=== PATIENT | female | born 1940 | race Caucasian/White ===

== ENCOUNTER 2017-10-07 05:38 | Outpatient (CLI) | payer MEDICARE ==
[~2017-10-07] VITALS: Ht 165.1 cm; Wt 83.9 kg
[2017-10-07] MEDS ORDERED: DILT180C54 PO (13:46)
[2017-10-07] MEDS ORDERED: HYDR25TA4 PO (13:46)
[2017-10-07] MEDS ORDERED: SIMV20TA3 PO (13:46)
[2017-10-07] MEDS ORDERED: MULT1TAB69 PO (13:46)
[2017-10-07] MEDS ORDERED: DIPH25CA79 PO (13:46)
[2017-10-07] MEDS ORDERED: ACYC400T PO (13:46)
[2017-10-07] MEDS ORDERED: ENAL20TA PO (13:46)
== END 2017-10-07 13:49 ==
LOC: PREOP 05:38
PROVIDERS: ATTEND Otolaryngology Otolaryngology/Facial Plastic Surgery
DX: Z01.818 Encounter for other preprocedural examination (principal); K11.23 Chronic sialoadenitis

== ENCOUNTER 2017-10-14 06:45 | Day surgery (SDC) | payer MEDICARE ==
[~2017-10-14] VITALS: Ht 165.1 cm; Wt 83.9 kg
[~2017-10-14 06:45] MED LIST: ACYC400T PO; DILT180C54 PO; DIPH25CA79 PO; ENAL20TA PO; HYDR25TA4 PO; MULT1TAB69 PO; SIMV20TA3 PO
--- OUTSIDE RECORDS SUMMARY | 2017-10-14 06:50 | XMS REPORT ---
Author Author CHRISTIANO ROACH [facility] eClinicalWorks Address Unknown Phone Unavailable Care Team Providers Care Mushroom Picker Name Role Phone CHRISTIANO ROACH CP Unavailable Allergies, Adverse Reactions, Alerts Substance Reaction Event Type Lipitor Info Not Available Drug Allergy Morphine Info Not Available Drug Allergy Problems Problem Type Condition Code Onset Dates Condition Status Assessment Cellulitis of leg, right L03.115 Active Problem Dysuria 788.1 Active Problem Acute upper respiratory infections of unspecified site 465.9 Active Problem Cervicalgia 723.1 Active Problem Essential hypertension, benign 401.1 Active Problem Diabetes mellitus without mention of complication, type II or unspecified type, not stated as uncontrolled 250.00 Active Problem Need for prophylactic vaccination and inoculation, Influenza V04.81 Active Problem Mixed hyperlipidemia 272.2 Active Medications Medication Code System Code Instructions Start Date End Date Status Dosage Furosemide [facility] [address]-12 20 MG Apr 09, 2014 take 1 tablet (20 mg) by oral route once daily Diltiazem HCl [facility] [address]-46 180 mg Apr 09, 2014 take 1 capsule (180 mg) by oral route once daily Simvastatin [facility] [address]-00 20 MG 1 tablet by Oral route 1 time per day Bactroban [facility] [address]-63 2 % Externally 2 times a day 1 application to affected area Enalapril Maleate [facility] [address]-02 10 MG Apr 09, 2014 take 1 tablet by Oral route 1 time per day Meloxicam [facility] [address]-67 15 MG Apr 09, 2014 take 1 tablet (15 mg) by oral route once daily Benadryl [facility] [address]-17 25 MG Orally every 6 hrs 1 tablet as needed Procedures Procedure Coding System Code Date Office Visit, Est Pt., Level 3 CPT-4 25038 May 06, 2016 [facility] VISIT ESTABLISHED PATIENT CPT-4 G0467 May 06, 2016 Vital Signs Date/Time: May 06, 2016 Cardiac Monitoring Heart Rate 76 bpm Weight 192.3 lbs Height 65 in BMI 32.00 Index Blood Pressure Diastolic 80 mmHg Blood Pressure Systolic 152 mmHg Results No Known Results Summary Purpose eClinicalWorks Submission
--- OUTSIDE RECORDS SUMMARY | 2017-10-14 06:50 | XMS REPORT ---
Author Author CHRISTIANO ROACH [facility] eClinicalWorks Address Unknown Phone Unavailable Care Team Providers Care Furniture Lumber Production Worker Name Role Phone CHRISTIANO ROACH CP Unavailable Allergies, Adverse Reactions, Alerts Substance Reaction Event Type Lipitor Info Not Available Drug Allergy Morphine Info Not Available Drug Allergy Problems Problem Type Condition Code Onset Dates Condition Status Assessment Contusion of right lower leg, initial encounter S80.11XA Active Problem Dysuria 788.1 Active Problem Acute [...] Instructions Start Date End Date Status Dosage Diltiazem HCl [facility] [address]-52 180 mg Apr 09, 2014 take 1 capsule (180 mg) by oral route once daily Bactroban [facility] [address]-34 2 % Externally 2 times a day 1 application to affected area Furosemide [facility] [address]-06 20 MG Apr 09, 2014 take 1 tablet (20 mg) by oral route once daily Meloxicam [facility] [address]-71 15 MG Apr 09, 2014 take 1 tablet (15 mg) by oral route once daily Enalapril Maleate [facility] [address]-09 10 MG Apr 09, 2014 take 1 tablet by Oral route 1 time per day Simvastatin [facility] [address]-39 20 MG 1 tablet by Oral route 1 time per day Benadryl [facility] [address]-07 25 MG Orally every 6 hrs 1 tablet as needed Procedures Procedure Coding System Code Date [facility] VISIT ESTABLISHED PATIENT CPT-4 G0467 Apr 29, 2016 Office Visit, Est Pt., Level 3 CPT-4 00621 Apr 29, 2016 X-RAY EXAM OF LOWER LEG CPT-4 38536 Apr 29, 2016 Vital Signs Date/Time: Apr 29, 2016 Cardiac Monitoring Heart Rate 78 bpm Weight 187.6 lbs Height 65 in BMI 31.21 Index Blood Pressure Diastolic 82 mmHg Blood Pressure Systolic 134 mmHg Results No Known Results Summary Purpose eClinicalWorks Submission
--- OUTSIDE RECORDS SUMMARY | 2017-10-14 06:50 | XMS REPORT ---
Author Author CHRISTIANO ROACH Organization eClinicalWorks Address Unknown Phone Unavailable Care Team Providers Care Technical Education Teacher Name Role Phone CHRISTIANO ROACH CP Unavailable Allergies No Known Allergies Problems Problem Type Condition Code Onset Dates Condition Status Problem Dysuria 788.1 Active Problem Acute upper [...] Instructions Start Date End Date Status Dosage Enalapril Maleate [facility] [address]-00 10 MG Apr 09, 2014 take 1 tablet by Oral route 1 time per day Furosemide [facility] [address]-97 20 MG Apr 09, 2014 take 1 tablet (20 mg) by oral route once daily Diltiazem HCl [facility] [address]-16 180 mg Apr 09, 2014 take 1 capsule (180 mg) by oral route once daily Simvastatin [facility] [address]-17 20 MG 1 tablet by Oral route 1 time per day Meloxicam [facility] [address]-58 15 MG Apr 09, 2014 take 1 tablet (15 mg) by oral route once daily Results No Known Results Summary Purpose eClinicalWorks Submission
--- OUTSIDE RECORDS SUMMARY | 2017-10-14 06:50 | XMS REPORT ---
Author [facility] Address [address] [place] [address] Care Team Providers Care Plow Mechanic Name Role Phone CHRISTIANO ROACH Unavailable PROBLEMS Type Condition ICD9-CM Code [id number] Code Onset Dates Condition Status SNOMED Code Problem Dysuria 788.1 Active 85472676 Problem Acute upper respiratory infections of unspecified site 465.9 Active 62352685 Problem Cervicalgia 723.1 Active 75517653 Problem Need for prophylactic vaccination and inoculation, Influenza V04.81 Active 351994843 Problem Essential (primary) hypertension I10 Active 31302916 Problem Type 2 diabetes mellitus without complications E11.9 Active 177413663 Problem Mixed hyperlipidemia 272.2 Active 371310138 Problem Essential hypertension, benign 401.1 Active 1697193 Problem Mixed hyperlipidemia E78.2 Active 957676561 Problem Diabetes mellitus without mention of complication, type II or unspecified type, not stated as uncontrolled 250.00 Active 873177901 ALLERGIES Unknown Allergies SOCIAL HISTORY No smoking Hx information available PLAN OF CARE VITAL SIGNS MEDICATIONS Medication Instructions Dosage Frequency Start Date End Date Duration Status Hydrocortisone 5 mg Orally every 4 hours as needed for pain/cough 1 tablet Jun, Active RESULTS No Results PROCEDURES No Known procedures IMMUNIZATIONS No Known Immunizations
--- OUTSIDE RECORDS SUMMARY | 2017-10-14 06:50 | XMS REPORT ---
Author CHRISTIANO Green Organization eClinicalWorks Address Unknown Phone Unavailable Care Team Providers Care Fire Controlman Name Role Phone CHRISTIANO ROACH CP Unavailable Allergies, Adverse Reactions, Alerts Substance Reaction Event Type Lipitor Info Not Available Drug Allergy Morphine Info Not Available Drug Allergy Problems Problem Type Condition Code Onset Dates Condition Status Assessment Mixed hyperlipidemia E78.2 Active Assessment Essential (primary) hypertension I10 Active Assessment Type 2 diabetes mellitus without complications E11.9 Active Problem Dysuria 788.1 Active Problem Acute [...] Date End Date Status Dosage Enalapril Maleate [facility] [address]-57 10 MG Apr 09, 2014 take 1 tablet by Oral route 1 time per day Simvastatin [facility] [address]-41 20 MG 1 tablet by Oral route 1 time per day Meloxicam [facility] [address]-24 15 MG Apr 09, 2014 take 1 tablet (15 mg) by oral route once daily Diltiazem HCl [facility] [address]-58 180 mg Apr 09, 2014 take 1 capsule (180 mg) by oral route once daily Furosemide [facility] [address]-93 20 MG Apr 09, 2014 take 1 tablet (20 mg) by oral route once daily Procedures Procedure Coding System Code Date Office Visit, Est Pt., Level 3 CPT-4 01615 Apr 30, 2015 [facility] VISIT ESTABLISHED PATIENT CPT-4 G0467 Apr 30, 2015 Vital Signs Date/Time: Apr 30, 2015 Temperature 98.3 F Weight 182 lbs Height 65 in BMI 30.28 Index Blood Pressure Diastolic 80 mmHg Blood Pressure Systolic 142 mmHg Cardiac Monitoring Heart Rate 76 bpm Results No Known Results Summary Purpose eClinicalWorks Submission
--- OUTSIDE RECORDS SUMMARY | 2017-10-14 06:50 | XMS REPORT ---
Author Author ALINA DILL Organization eClinicalWorks Address Unknown Phone Unavailable Care Team Providers Care Tool Storage Attendant Name Role Phone ALINA DILL CP Unavailable Allergies No Known Allergies Problems Problem Type Condition Code Onset Dates Condition Status Assessment Mixed hyperlipidemia E78.2 Active Assessment Encounter for immunization Z23 Active Assessment Routine child health exam V20.2 Active Assessment Type 2 diabetes mellitus without complications E11.9 Active Assessment Essential (primary) hypertension I10 Active Problem Dysuria 788.1 Active Problem Acute upper respiratory infections of unspecified site 465.9 Active Problem Cervicalgia 723.1 Active Problem Essential hypertension, benign 401.1 Active Problem Diabetes mellitus without mention of complication, type II or unspecified type, not stated as uncontrolled 250.00 Active Problem Need for prophylactic vaccination and inoculation, Influenza V04.81 Active Problem Mixed hyperlipidemia 272.2 Active Medications No Known Medications Procedures Procedure Coding System Code Date [facility] C[facility]-4 NOBLL Apr 16, 2015 GLYCATED HEMOGLOBIN TEST CPT-4 07460 Apr 16, 2015 ADMN FLU VAC NO FEE SCHED SAME DAY CPT-4 G0008 Apr 16, 2015 FLUARIX QUAD (3 & UP)-GSK-2014 CPT-4 62371 Apr 16, 2015 VENIPUNCT, ROUTINE* CPT-4 12186 Apr 16, 2015 Results Name Result Date Reference Range Unit Abnormality Flag ROUTINE VENIPUNCTURE A1C Immunizations Vaccine Administration Date FLUARIX QUAD (3 & UP)-GSK-2014Apr 16, 2015 Summary Purpose eClinicalWorks Submission
--- OUTSIDE RECORDS SUMMARY | 2017-10-14 06:50 | XMS REPORT ---
Author Author [facility] Address [address] [place] [address] Care Team Providers Care Pencils Washer Name Role Phone CHRISTIANO ROACH Unavailable PROBLEMS Type Condition ICD9-CM Code [id number] Code Onset Dates Condition Status SNOMED Code Problem Essential hypertension, benign 401.1 Active 7167847 Problem Need for prophylactic vaccination and inoculation, Influenza V04.81 Active 614199367 Problem Mixed hyperlipidemia 272.2 Active 352696548 Problem Diabetes mellitus without mention of complication, type II or unspecified type, not stated as uncontrolled 250.00 Active 429392463 Problem Type 2 diabetes mellitus without complications E11.9 Active 902751364 Problem Mixed hyperlipidemia E78.2 Active 923326252 Problem Dysuria 788.1 Active 22858689 Problem Acute upper respiratory infections of unspecified site 465.9 Active 37208771 Problem Essential (primary) hypertension I10 Active 79216245 Problem Cervicalgia 723.1 Active 87989129 ALLERGIES Unknown Allergies SOCIAL HISTORY No smoking Hx information available PLAN OF CARE Activity Details Follow Up prn Reason: VITAL SIGNS MEDICATIONS Unknown Medications RESULTS Name Result Date Reference Range A1C 2016-06-25 Hemoglobin A1c 6.3 4.8-5.6 CBC 2016-06-25 WBC 5.8 3.4-10.8 RBC 4.88 3.77-5.28 Hemoglobin 14.8 11.1-15.9 Hematocrit 43.9 34.0-46.6 MCV 90 79-97 MCH 30.3 26.6-33.0 MCHC 33.7 31.5-35.7 RDW 12.8 12.3-15.4 Platelets 244 150-379 Neutrophils 63 Lymphs 26 Monocytes 8 Eos 3 Basos 0 Immature Cells Neutrophils (Absolute) 3.6 1.4-7.0 Lymphs (Absolute) 1.5 0.7-3.1 Monocytes(Absolute) 0.5 0.1-0.9 Eos (Absolute) 0.2 0.0-0.4 Baso (Absolute) 0.0 0.0-0.2 Immature Granulocytes 0 Immature Grans (Abs) 0.0 0.0-0.1 NR Hematology Comments: LIPID PANEL 2016-06-25 Cholesterol, Total 194 100-199 Triglycerides 143 0-149 HDL Cholesterol 51 >39 VLDL Cholesterol Konrad 29 5-40 LDL Cholesterol Calc 114 0-99 Comment: CMP 2016-06-25 Glucose, Serum 145 65-99 BUN 20 8-27 Creatinine, Serum 0.68 0.57-1.00 eGFR If NonAfricn Am 84 >59 eGFR If Africn Am 97 >59 BUN/Creatinine Ratio 29 11-26 Sodium, Serum 143 134-144 Potassium, Serum 4.9 3.5-5.2 Chloride, Serum 101 96-106 Carbon Dioxide, Total 27 18-29 Calcium, Serum 9.5 8.7-10.3 Protein, Total, Serum 6.3 6.0-8.5 Albumin, Serum 4.3 3.5-4.8 Globulin, Total 2.0 1.5-4.5 A/G Ratio 2.2 1.1-2.5 Bilirubin, Total 0.7 0.0-1.2 Alkaline Phosphatase, S 80 39-117 AST (SGOT) 15 0-40 ALT (SGPT) 15 0-32 PROCEDURES Procedure Date Ordered Related Diagnosis Body [facility], 2016 GLYCATED HEMOGLOBIN TEST Jun 25, 2016 VENIPUNCT, ROUTINE* Jun 25, 2016 IMMUNIZATIONS No Known Immunizations
--- OUTSIDE RECORDS SUMMARY | 2017-10-14 06:50 | XMS REPORT ---
Author Author [facility] Address [address] [place] [address] Care Team Providers Care Senior Web Analyst Name Role Phone CHRISTIANO ROACH Unavailable PROBLEMS Type Condition ICD9-CM Code [id number] Code Onset Dates Condition Status SNOMED Code Problem Dysuria 788.1 Active 80798074 Problem Acute upper respiratory infections of unspecified site 465.9 Active 37760130 Problem Cervicalgia 723.1 Active 60964133 Problem Need for prophylactic vaccination and inoculation, Influenza V04.81 Active 306378667 Problem Essential (primary) hypertension I10 Active 56151814 Problem Type 2 diabetes mellitus without complications E11.9 Active 614200069 Problem Mixed hyperlipidemia 272.2 Active 528765729 Problem Essential hypertension, benign 401.1 Active 5442078 Problem Mixed hyperlipidemia E78.2 Active 736850586 Problem Diabetes mellitus without mention of complication, type II or unspecified type, not stated as uncontrolled 250.00 Active 019781482 ALLERGIES Substance Reaction Event Type Date Status Lipitor Unknown Drug Allergy Jun, Active Morphine Unknown Drug Allergy Jun, Active SOCIAL HISTORY No smoking Hx information available PLAN OF CARE Activity Details Follow Up 1 Year Reason: VITAL SIGNS Height 65 in 2016-06-30 Weight 190.4 lbs 2016-06-30 Temperature 98.2 degrees Fahrenheit 2016-06-30 Heart Rate 86 bpm 2016-06-30 Respiratory Rate 18 2016-06-30 BMI 31.68 kg/m2 2016-06-30 Blood pressure systolic 170 mmHg 2016-06-30 Blood pressure diastolic 88R-168 mmHg 2016-06-30 MEDICATIONS Medication Instructions Dosage Frequency Start Date End Date Duration Status Furosemide 20 MG take 1 tablet (20 mg) by oral route once daily Mar Active Meloxicam 15 MG take 1 tablet (15 mg) by oral route once daily Mar, Active Bactroban 2 % Externally 2 times a day 1 application to affected area 12h Active Enalapril Maleate 10 MG take 1 tablet by Oral route 1 time per day Mar, Active Simvastatin 20 MG 1 tablet by Oral route 1 time per day Active Diltiazem HCl 180 mg take 1 capsule (180 mg) by oral route once daily Mar, Active Benadryl 25 MG Orally every 6 hrs 1 tablet as needed 6h Active RESULTS Name Result Date Reference Range MICROALBUMIN/CREATININE RATIO, URINE 2016-06-30 Creatinine, Urine 37.3 Not Estab. Microalbumin, Urine 16.6 Not Estab. Microalb/Creat Ratio 44.5 0.0-30.0 MICROALBUMIN, URINE (IN HOUSE) 2016-06-30 MICROALBUMIN abnormal Lot # [id number] Exp date 06/2017 Clarity clear Color yellow ALB 30mg/L CRE 50mg/dL A:C (IN HOUSE) 30-300mg/g Control Control Lot # Exp PROCEDURES Procedure Date Ordered Related Diagnosis Body Site MICROALBUMIN, SEMIQUANT Jun 30, 2016 [facility] Jun [facility], 2016 Office Visit, Est Pt., Level 3 Jun 30, 2016 [facility] VISIT ESTABLISHED PATIENT Jun 30, 2016 IMMUNIZATIONS No Known Immunizations
--- OUTSIDE RECORDS SUMMARY | 2017-10-14 06:51 | XMS REPORT | Continuity of Care Document ---
Author Author Formerly [facility], 1928–1983 [facility] Address Unknown Phone Unavailable Allergies Active Description Code Type Severity Reaction Onset Reported/Identified Relationship to Patient Clinical Status Yes morphine [id number] Drug Allergy Unknown NAUSEA 10/07/2017 Medications There is no data. Problems Date Dx Coded Attending Type Code Diagnosis Diagnosed By 04/24/2013 CHRISTIANO ROACH MD 250.00 DIABETES MELLITUS WITHOUT MENTION OF COMPLICATION TYPE II OR UNSPECIFIED TYPE NOT STATED UNCONTROLLED 04/24/2013 CHRISTIANO ROACH MD 272.2 MIXED HYPERLIPIDEMIA 04/24/2013 CHRISTIANO ROACH MD 401.1 BENIGN ESSENTIAL HYPERTENSION 04/24/2013 CHRISTIANO ROACH MD 250.00 DIABETES MELLITUS WITHOUT MENTION OF COMPLICATION TYPE II OR UNSPECIFIED TYPE NOT STATED UNCONTROLLED 04/24/2013 CHRISTIANO ROACH MD 272.2 MIXED HYPERLIPIDEMIA 04/24/2013 CHRISTIANO ROACH MD 401.1 BENIGN ESSENTIAL HYPERTENSION 04/24/2013 CHRISTIANO ROACH MD 250.00 DIABETES MELLITUS WITHOUT MENTION OF COMPLICATION TYPE II OR UNSPECIFIED TYPE NOT STATED UNCONTROLLED 04/24/2013 CHRISTIANO ROACH MD 272.2 MIXED HYPERLIPIDEMIA 04/24/2013 CHRISTIANO ROACH MD 401.1 BENIGN ESSENTIAL HYPERTENSION 04/24/2013 CHRISTIANO ROACH MD 250.00 DIABETES MELLITUS WITHOUT MENTION OF COMPLICATION TYPE II OR UNSPECIFIED TYPE NOT STATED UNCONTROLLED 04/24/2013 CHRISTIANO ROACH MD 272.2 MIXED HYPERLIPIDEMIA 04/24/2013 CHRISTIANO ROACH MD 401.1 BENIGN ESSENTIAL HYPERTENSION 04/24/2013 CHRISTIANO ROACH MD 250.00 DIABETES MELLITUS WITHOUT MENTION OF COMPLICATION TYPE II OR UNSPECIFIED TYPE NOT STATED UNCONTROLLED 04/24/2013 CHRISTIANO ROACH MD 272.2 MIXED HYPERLIPIDEMIA 04/24/2013 CHRISTIANO ROACH MD 401.1 BENIGN ESSENTIAL HYPERTENSION 04/24/2013 CHRISTIANO ROACH MD 250.00 DIABETES MELLITUS WITHOUT MENTION OF COMPLICATION TYPE II OR UNSPECIFIED TYPE NOT STATED UNCONTROLLED 04/24/2013 CHRISTIANO ROACH MD 272.2 MIXED HYPERLIPIDEMIA 04/24/2013 CHRISTIANO ROACH MD 401.1 BENIGN ESSENTIAL HYPERTENSION 04/24/2013 CHRISTIANO ROACH MD 250.00 DIABETES MELLITUS WITHOUT MENTION OF COMPLICATION TYPE II OR UNSPECIFIED TYPE NOT STATED UNCONTROLLED 04/24/2013 CHRISTIANO ROACH MD 272.2 MIXED HYPERLIPIDEMIA 04/24/2013 CHRISTIANO ROACH MD 401.1 BENIGN ESSENTIAL HYPERTENSION 04/24/2013 CHRISTIANO ROACH MD 250.00 DIABETES MELLITUS WITHOUT MENTION OF COMPLICATION TYPE II OR UNSPECIFIED TYPE NOT STATED UNCONTROLLED 04/24/2013 CHRISTIANO ROACH MD 272.2 MIXED HYPERLIPIDEMIA 04/24/2013 CHRISTIANO ROACH MD 401.1 BENIGN ESSENTIAL HYPERTENSION 04/24/2013 CHRISTIANO ROACH MD 250.00 DIABETES MELLITUS WITHOUT MENTION OF COMPLICATION TYPE II OR UNSPECIFIED TYPE NOT STATED UNCONTROLLED 04/24/2013 CHRISTIANO ROACH MD 272.2 MIXED HYPERLIPIDEMIA 04/24/2013 CHRISTIANO ROACH MD 401.1 BENIGN ESSENTIAL HYPERTENSION 04/24/2013 CHRISTIANO ROACH MD 250.00 DIABETES MELLITUS WITHOUT MENTION OF COMPLICATION TYPE II OR UNSPECIFIED TYPE NOT STATED UNCONTROLLED 04/24/2013 CHRISTIANO ROACH MD 272.2 MIXED HYPERLIPIDEMIA 04/24/2013 CHRISTIANO ROACH MD 401.1 BENIGN ESSENTIAL HYPERTENSION 04/24/2013 CHRISTIANO ROACH MD 250.00 DIABETES MELLITUS WITHOUT MENTION OF COMPLICATION TYPE II OR UNSPECIFIED TYPE NOT STATED UNCONTROLLED 04/24/2013 CHRISTIANO ROACH MD 272.2 MIXED HYPERLIPIDEMIA 04/24/2013 CHRISTIANO ROACH MD 401.1 BENIGN ESSENTIAL HYPERTENSION 08/09/2013 CHRISTIANO ROACH MD 465.9 UPPER RESPIRATORY INFECTION 08/09/2013 CHRISTIANO ROACH MD 465.9 UPPER RESPIRATORY INFECTION 08/09/2013 CHRISTIANO ROACH MD 465.9 UPPER RESPIRATORY INFECTION 08/09/2013 CHRISTIANO ROACH MD 465.9 UPPER RESPIRATORY INFECTION 08/09/2013 CHRISTIANO ROACH MD 465.9 UPPER RESPIRATORY INFECTION 08/09/2013 CHRISTIANO ROACH MD 465.9 UPPER RESPIRATORY INFECTION 08/09/2013 CHRISTIANO ROACH MD 465.9 UPPER RESPIRATORY INFECTION 08/09/2013 CHRISTIANO ROACH MD 465.9 UPPER RESPIRATORY INFECTION 08/09/2013 CHRISTIANO ROACH MD 465.9 UPPER RESPIRATORY INFECTION 09/28/2013 CHRISTIANO ROACH MD 723.1 PAIN NECK 09/28/2013 CHRISTIANO ROACH MD 723.1 PAIN NECK 09/28/2013 CHRISTIANO ROACH MD 723.1 PAIN NECK 09/28/2013 CHRISTIANO ROACH MD 723.1 PAIN NECK 09/28/2013 CHRISTIANO ROACH MD 723.1 PAIN NECK 09/28/2013 CHRISTIANO ROACH MD 723.1 PAIN NECK 09/28/2013 CHRISTIANO ROACH MD 723.1 PAIN NECK 09/28/2013 CHRISTIANO ROACH MD 723.1 PAIN NECK 11/03/2013 CHRISTIANO ROACH MD 788.1 DYSURIA 11/03/2013 CHRISTIANO ROACH MD 788.1 DYSURIA 11/03/2013 CHRISTIANO ROACH MD 788.1 DYSURIA 11/03/2013 CHRISTIANO ROACH MD 788.1 DYSURIA 11/03/2013 CHRISTIANO ROACH MD 788.1 DYSURIA 11/03/2013 CHRISTIANO ROACH MD 788.1 DYSURIA 04/09/2014 CHRISTIANO ROACH MD V04.81 FLU SHOT 04/09/2014 CHRISTIANO ROACH MD V04.81 FLU SHOT Procedures Code Description [place] [address] CBC 04/25/2013 3705274 GFR CALC (RESULT ONLY) 04/25/2013 64774 CMP 04/25/2013 53065 LIPID PANEL 04/25/2013 13410 A1C (RML) 04/25/2013 55324 ROUTINE VENIPUNCTURE 05/04/2013 44648 ROUTINE VENIPUNCTURE 11/01/2013 96477 CMP 11/01/2013 77108 LIPID PANEL 11/01/2013 9437434 GFR CALC (RESULT ONLY) 11/01/2013 98925 CBC 11/01/2013 45700 A1C (RML) 11/01/2013 15380 UA LONG DIP 11/03/2013 11552 CULTURE URINE 11/05/2013 38397 UA LONG DIP 12/05/2013 64476 UA LONG DIP 01/08/2014 42682 MICRO ALBUMIN-IN HOUSE 04/02/2014 89664 ROUTINE VENIPUNCTURE 04/02/2014 3205522 GFR CALC (RESULT ONLY) 04/02/2014 14599 LIPID PANEL 04/02/2014 20554 CMP 04/02/2014 99434 CBC 04/02/2014 27909 A1C (RML) 04/03/2014 G0008 FLU ADMINISTRATION ( MEDICARE ONLY) 04/09/2014 43113 ROUTINE VENIPUNCTURE 10/05/2014 41597 CBC 10/05/2014 02674 A1C (RML) 10/05/2014 44013 CMP 10/05/2014 47148 LIPID PANEL 10/05/20148421983 GFR CALC (RESULT ONLY) 10/05/2014 Results Test Result Range TSH w/ FREE T4 - 06/29/17 15:38 TSH 1.55 mIU/L 0.40-4.50 T4, FREE 1.3 ng/dL 0.8-1.8 CBC - 06/29/17 15:38 WHITE BLOOD CELL COUNT 7.1 Thousand/uL 3.8-10.8 RED BLOOD CELL COUNT 5.19 Million/uL 3.80-5.10 HEMOGLOBIN 15.3 g/dL 11.7-15.5 HEMATOCRIT 46.2 % 35.0-45.0 MCV 89.0 fL 80.0-100.0 MCH 29.5 pg 27.0-33.0 MCHC 33.1 g/dL 32.0-36.0 RDW 12.0 % 11.0-15.0 PLATELET COUNT 263 Thousand/uL 140-400 MPV 10.5 fL 7.5-12.5 ABSOLUTE NEUTROPHILS 4324 cells/uL 4364-4700 ABSOLUTE LYMPHOCYTES 1974 cells/uL 850-3900 ABSOLUTE MONOCYTES 589 cells/uL 200-950 ABSOLUTE EOSINOPHILS 163 cells/uL 15-500 ABSOLUTE BASOPHILS 50 cells/uL 0-200 NEUTROPHILS 60.9 % NRG LYMPHOCYTES 27.8 % NRG MONOCYTES 8.3 % NRG EOSINOPHILS 2.3 % NRG BASOPHILS 0.7 % NRG ESR/SED RATE - 06/29/17 15:38 SED RATE BY MODIFIED WESTERGREN 14 mm/h < OR=30 BMP - 07/16/17 09:07 GLUCOSE 120 mg/dL 65-99 UREA NITROGEN (BUN) 21 mg/dL 7-25 CREATININE 0.69 mg/dL 0.60-0.93 eGFR NON-AFR. MALAYSIAN 83 mL/min/1.73m2 > OR=60 eGFR 96 mL/min/1.73m2 > OR=60 BUN/CREATININE RATIO NOT APPLICABLE (calc) 6-22 SODIUM 142 mmol/L 135-146 POTASSIUM 4.2 mmol/L 3.5-5.3 CHLORIDE 106 mmol/L 98-110 CARBON DIOXIDE 29 mmol/L 20-31 CALCIUM 9.6 mg/dL 8.6-10.4 CBC - 08/09/17 16:45 WHITE BLOOD CELL COUNT 7.4 Thousand/uL 3.8-10.8 RED BLOOD CELL COUNT 5.25 Million/uL 3.80-5.10 HEMOGLOBIN 15.7 g/dL 11.7-15.5 HEMATOCRIT 46.6 % 35.0-45.0 MCV 88.8 fL 80.0-100.0 MCH 29.9 pg 27.0-33.0 MCHC 33.7 g/dL 32.0-36.0 RDW 12.3 % 11.0-15.0 PLATELET COUNT 263 Thousand/uL 140-400 MPV 10.7 fL 7.5-12.5 ABSOLUTE NEUTROPHILS 4566 cells/uL 2292-7246 ABSOLUTE LYMPHOCYTES 2057 cells/uL 850-3900 ABSOLUTE MONOCYTES 607 cells/uL 200-950 ABSOLUTE EOSINOPHILS 118 cells/uL 15-500 ABSOLUTE BASOPHILS 52 cells/uL 0-200 NEUTROPHILS 61.7 % NRG LYMPHOCYTES 27.8 % NRG MONOCYTES 8.2 % NRG EOSINOPHILS 1.6 % NRG BASOPHILS 0.7 % NRG Encounters ACCT No. Visit Date/Time Discharge Status Pt. Type Provider Facility Loc./Unit Complaint [id number] 10/10/2014 10:42:00 10/10/2014 23:59:59 AMIR[facility] Outpatient CHRISTIANO ROACH MD [id number] 04/09/2014 11:04:00 04/09/2014 23:59:59 [facility] Outpatient CHRISTIANO ROACH MD [id number] 04/02/2014 08:01:00 04/02/2014 23:59:59 [facility] Outpatient CHRISTIANO ROACH MD [id number] 01/08/2014 09:24:00 01/08/2014 23:59:59 AMIRAH Outpatient CHRISTIANO ROACH MD [id number] 12/05/2013 08:19:00 12/05/2013 23:59:59 CLS Outpatient CHRISTIANO ROACH MD [id number] 11/03/2013 08:53:00 11/03/2013 23:59:59 CLS Outpatient CHRISTIANO ROACH MD [id number] 11/01/2013 08:06:00 11/01/2013 23:59:59 CLS Outpatient CHRISTIANO ROACH MD [id number] 09/28/2013 14:20:00 09/28/2013 23:59:59 CLS Outpatient CHRISTIANO ROACH MD [id number] 08/09/2013 11:24:00 08/09/2013 23:59:59 CLS Outpatient CHRISTIANO ROACH MD [id number] 05/03/2013 13:42:00 05/03/2013 23:59:59 CLS Outpatient CHRISTIANO ROACH MD [id number] 04/24/2013 07:57:00 04/24/2013 23:59:59 CLS Outpatient CHRISTIANO ROACH MD [id number] 10/07/2017 05:38:00 10/07/2017 13:49:00 DIS Outpatient SANJUANA MARRERO MD [facility] PREOP CHRONIC LEFT SUBMANDIBULAR SIALADENITIS [id number] 10/14/2017 09:00:00 PEN Preadmit SANJUANA MARRERO MD [facility] SDC CHRONIC LEFT SUBMANDIBULAR SIALADENITIS [id number] 08/23/2017 16:00:00 08/23/2017 23:59:59 CLS Outpatient JOSIE ANN IOLA [id number] 08/09/2017 16:00:00 Document Registration [id number] 07/16/2017 09:00:00 Document Registration [id number] 06/29/2017 14:40:00 Document Registration
[2017-10-14 07:05] VITALS: BP 152/82
[2017-10-14] MEDS: LACTATED RINGERS 1,000 ML IV PRN ×2 (07:18→09:32)
[2017-10-14] MEDS ORDERED: ONDANSETRON 4 MG/2 ML (SDV) Z0FRAN ONE (07:37)
[2017-10-14] MEDS ORDERED: proPOfol 200 MG/20 ML (DIPRIVAN) VIAL IV ONE (07:37)
[2017-10-14] MEDS ORDERED: LIDOCAINE PF 2% 5 ML (XYLOCAINE) VIAL ONE (07:37)
[2017-10-14] MEDS ORDERED: ROCURONIUM 10 MG/ML 5 ML SYRINGE IV ONE (07:37)
[2017-10-14] MEDS ORDERED: fentaNYL INJECTION 100 MCG/2 ML AMP ONE ×2 (07:38→09:25)
[2017-10-14] MEDS ORDERED: MIDAZOLAM 2 MG/2 ML (VERSED) VIAL ONE (07:39)
[2017-10-14] MEDS ORDERED: SEVOFLURANE (ULTANE) 15 ML INHAL SOLN ONE ×4 (07:41→10:02)
[2017-10-14] MEDS ORDERED: MUPIROCIN 2% OINT 22 GM (BACTROBAN) TUBE ONE (07:49)
[2017-10-14] MEDS ORDERED: LIDOCAINE/EPI 1%-1:200,000 (XYLOCAINE) 10 ML VIAL ONE (07:49)
--- NOTE | 2017-10-14 08:28 | Progress Note-Pre Operative ---
Pre-Operative Progress Note H&P Reviewed The H&P was reviewed, patient examined and no changes noted. 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
[2017-10-14] MEDS ORDERED: GLYCOPYRROLATE 0.2 MG/ML (ROBINUL) 2 ML VIAL ONE (08:52)
[2017-10-14] MEDS ORDERED: PHENYLEPHRINE 100 MCG/ML 10 ML (ANESTHESIA) SYR ONE (08:54)
[2017-10-14] MEDS ORDERED: LIDOCAINE/EPI 1%-1:200,000 (XYLOCAINE) 10 ML VIAL INJ ONE (09:15)
[2017-10-14] MEDS ORDERED: NS (IVPB) 100 ML ONE (09:58)
[2017-10-14] MEDS ORDERED: CEFUROXIME 1.5 GM (ZINACEF) VIAL ONE (09:58)
[2017-10-14] MEDS ORDERED: CEFUROXIME INJECTION 1,500 MG in NS (IVPB) 100 ML IV ONE (10:15)
--- NOTE | 2017-10-14 10:24 | Progress Note-Post Operative ---
Post-Operative Progess Note Surgeon (s)/Project Engineer (s) Surgeon SANJUANA MARRERO MD Project Engineer n/a Pre-Operative Diagnosis Chronic Left Submandibular Sialoadenitis Post-Operative Diagnosis same Post-Op Procedure Note Date of Procedure: Oct 14, 2017 Name of Procedure Performed: Excision of Left Submandibular Gland Description & Findings Description and Findings: n/a Anesthesia Type get Estimated Blood Loss minimal Packing none. Specimen(s) collected/removed left submandibular gland SANJUANA MARRERO MD Oct 14, 2017 10:24 am
[2017-10-14] MEDS ORDERED: ACETAMINOPHEN 325 MG TABLET PO PRN (10:30)
[2017-10-14] MEDS ORDERED: fentaNYL INJECTION 100 MCG/2 ML AMP IVP PRN (10:30)
[2017-10-14] MEDS ORDERED: ONDANSETRON 4 MG/2 ML (SDV) Z0FRAN IVP PRN (10:45)
[2017-10-14] MEDS ORDERED: HYDROmorphone 2 MG/ML VIAL (DILAUDID) IVP PRN (10:45)
[2017-10-14] MEDS: fentaNYL INJECTION 100 MCG/2 ML AMP IVP PRN ×2 (11:10→11:20)
[2017-10-14 12:15] VITALS: BP 158/78
--- NOTE | 2017-10-14 12:44 | Anesthesia-General Post-Op ---
General Patient Condition Mental Status/LOC: Same as Preop Cardiovascular: Satisfactory Nausea/Vomiting: Absent Respiratory: Satisfactory Pain: Controlled Complications: Absent Post Op Complications Complications None Follow Up Care/Instructions Patient Instructions None needed. Anesthesia/Patient Condition Patient Condition Patient is doing well, no complaints, stable vital signs, no apparent adverse anesthesia problems. No complications reported per nursing. TREE SEQUEIRA CRNA Oct 14, 2017 12:44
[2017-10-14] MEDS: D5 1/2 NS W/KCL 20 MEQ/L 1,000 ML IV SCH (13:30)
[2017-10-14] MEDS ORDERED: CEFUROXIME INJECTION 1,500 MG in NS (IVPB) 100 ML IV SCH ×4 (14:00)
[2017-10-14 15:20] VITALS: BP 164/79
--- NOTE | 2017-10-14 17:17 | Progress Note-Standard ---
Standard Progress Note Progress Notes/Assess & Plan Date Seen by Provider: Oct 14, 2017 Time Seen by Provider: 17:00 Progress/Assessment & Plan ENT-Evelyn Siu seen post-op Doing well abdi diet Minimal drainage incision dry and intact good lip movement jose ramon lheplock IV diet as abdi will plan on pulling drain and home after breakfasts as long as she does ok SANJUANA MARRERO MD Oct 14, 2017 5:17 pm
[2017-10-14] MEDS: HYDROcodone/APAP 5 MG/325 MG (LORTAB) TAB PO PRN (18:37)
[2017-10-14 20:05] VITALS: BP 164/79
[2017-10-14] MEDS ORDERED: MUPIROCIN 2% OINT 22 GM (BACTROBAN) TUBE TOP SCH (21:00)
[2017-10-15] VITALS: BP 117/57
[2017-10-15] MEDS: HYDROcodone/APAP 5 MG/325 MG (LORTAB) TAB PO PRN (02:49)
[2017-10-15] MEDS: D5 1/2 NS W/KCL 20 MEQ/L 1,000 ML IV SCH (03:40)
[2017-10-15 04:30] VITALS: BP 126/59
--- NOTE | 2017-10-15 06:13 | Progress Note-Standard ---
Standard Progress Note Progress Notes/Assess & Plan Date Seen by Provider: Oct 15, 2017 Time Seen by Provider: 06:00 Progress/Assessment & Plan Meaghan PAt seen post-op Doing well abdi diet Minimal drainage incision dry and intact good lip movement jose ramon lheplock IV diet as abdi will plan on pulling drain and home after breakfasts as long as she does ok Meaghan /-6am Doing well Drain minimal drainge dc'ed neck incision flat dry and intact will discharge after breakfast RTC-10- days [facility] Discharge prescriptions inc garcia Discharge instructions given SANJUANA MARRERO MD Oct 15, 2017 6:13 am
[2017-10-15 07:56] VITALS: BP 181/77
[2017-10-15 07:59] VITALS: BP 181/77
== END 2017-10-15 08:13 | disposition home or self-care (01) ==
LOC: SDC 06:45 → 4TH 11:45 → SDC 10-15 08:13
PROVIDERS: ATTEND Otolaryngology Otolaryngology/Facial Plastic Surgery
DX: K11.23 Chronic sialoadenitis (principal); E11.9 Type 2 diabetes mellitus without complications; I10 Essential (primary) hypertension; E66.9 Obesity, unspecified; Z68.30 Body mass index [BMI] 30.0-30.9, adult; Z79.899 Other long term (current) drug therapy
CPT/HCPCS: 82962; 87081; 88307